=== PATIENT | male | born 1935 | race Two or more races ===

== ENCOUNTER 2024-04-07 14:07 | Emergency (ER) | payer MEDICARE, BC ==
[~2024-04-07] VITALS: Ht 185.4 cm; Wt 77.6 kg
[2024-04-07 14:51] LABS: BASOPHILS # (AUTO) 0.1 K/uL (0.0-0.2); BASOPHILS % (AUTO) 0.7 % (0.0-2.0); EOSINOPHILS # (AUTO) 0.1 K/uL (0.0-0.7); EOSINOPHILS % (AUTO) 1.8 % (0.0-6.0); HEMATOCRIT 38 % (39-51); LYMPHOCYTES # (AUTO) 1.4 K/uL (0.8-4.8); LYMPHOCYTES % (AUTO) 19.5 % (20.0-44.0); MEAN CORPUSCULAR HEMOGLOBIN 31 PG (26.0-33.0); MEAN CORPUSCULAR HGB CONC 35 g/dl (31.0-36.0); MEAN CORPUSCULAR VOLUME 89 fL (80-96); MONOCYTES # (AUTO) 0.7 K/uL (0.1-1.30); MONOCYTES % (AUTO) 10.2 % (2.0-12.0); NEUTROPHILS # (AUTO) 4.8 K/uL (1.8-8.9); NEUTROPHILS % (AUTO) 67.8 % (43.0-81.0); PLATELET COUNT (AUTO) 164 K/uL (150-450); RED BLOOD CELL COUNT(AUTO) 4.21 MIL/uL (4.5-6.0); RED CELL DISTRIBUTION WIDTH 14.7 % (11.5-15.0); WHITE BLOOD COUNT (AUTO) 7.1 K/uL (4.3-11.0)
[2024-04-07 15:03] LABS: CALCIUM, SERUM 8.9 mg/dL (8.5-10.1); CARBON DIOXIDE 25 mmol/L (21-32); CHLORIDE 102 mmol/L (98-107); CREATININE 0.9 mg/dL (0.6-1.3); GLUCOSE 175 mg/dL (74-106); POTASSIUM 4.3 mmol/L (3.5-5.1); SODIUM SERUM 136 mmol/L (136-145); UREA NITROGEN, BLOOD 21 mg/dL (7-18)
[2024-04-07 15:05] LABS: INR 1.19 (0.91-1.10); PARTIAL THROMBOPLASTIN TIME 28.9 SEC (24.3-34.3); PROTHROMBIN TIME 12.5 SECS (9.2-11.1)
[2024-04-07 15:09] LABS: ALANINE AMINOTRANSFERASE 11 U/L (12-78); ALBUMIN 2.9 g/dL (3.4-5.0); ALKALINE PHOSPHATASE 49 U/L (46-116); ASPARTATE AMINOTRANSFERASE 9 U/L (15-37); BILIRUBIN,DIRECT 0.2 mg/dL (0.0-0.2); BILIRUBIN,TOTAL 0.7 mg/dL (0.2-1.0); TOTAL PROTEIN, SERUM 6.3 g/dL (6.4-8.2)
[2024-04-07] MEDS: IV NS 0.9% 250 ML BAG IV ONE (16:02)
[2024-04-07] MEDS ORDERED: ATOR80TA PO (22:59)
[2024-04-07] MEDS ORDERED: TIOT4MIS3 IH (22:59)
[2024-04-07] MEDS ORDERED: DONE5TAB34 PO (22:59)
[2024-04-07] MEDS ORDERED: AMIT25TA9 PO (22:59)
[2024-04-07] MEDS ORDERED: CLOP75TA15 PO (22:59)
[2024-04-07] MEDS ORDERED: LORA-259 PO (22:59)
[2024-04-07] MEDS ORDERED: ESTR1TAB28 PO (22:59)
[2024-04-07] MEDS ORDERED: CLOT15CR27 TP (22:59)
[2024-04-07] MEDS ORDERED: CITA10SO3 PO (22:59)
[2024-04-07] MEDS ORDERED: ASCO500T21 PO (22:59)
[2024-04-07] MEDS ORDERED: VITA1TAB56 PO (22:59)
[2024-04-07] MEDS ORDERED: AZEL23SP2 BNOSTRILS (22:59)
[2024-04-07 23:01] VITALS: BP 119/94; TEMP 98.6; O2SAT 95
== END 2024-04-07 23:01 ==
LOC: ER 14:40
DX: S32.19XA Other fracture of sacrum, initial encounter for closed fracture (principal); I10 Essential (primary) hypertension; M54.2 Cervicalgia; E11.9 Type 2 diabetes mellitus without complications; W18.39XA Other fall on same level, initial encounter; Y93.89 Activity, other specified; Y92.89 Other specified places as the place of occurrence of the external cause; Y99.8 Other external cause status
CPT/HCPCS: 99285; 72125; 71045; 93005; 73502; 70450; 72192; 85025; 80048; 80076; 36415; 84484; 85730; J7050

== ENCOUNTER 2024-04-10 14:11 | Inpatient (IN) | payer MEDICARE, BC ==
[~2024-04-10] VITALS: Ht 167.6 cm; Wt 5.4 kg
[~2024-04-10 14:11] MED LIST: AMIT25TA9 PO; ASCO500T21 PO; ATOR80TA PO; AZEL23SP2 BNOSTRILS; CITA10SO3 PO; CLOP75TA15 PO; CLOT15CR27 TP; DONE5TAB34 PO; ESTR1TAB28 PO; LORA-259 PO; TIOT4MIS3 IH; VITA1TAB56 PO
[2024-04-10] MEDS ORDERED: oxyCODONE/APAP (5/325 MG) 1 UDTAB TABLET ONE (14:58)
[2024-04-10] MEDS: oxyCODONE/APAP (5/325 MG) 1 UDTAB TABLET PO ONE (15:03)
[2024-04-10] MEDS ORDERED: BISA10SU11 RC (15:24)
[2024-04-10] MEDS ORDERED: NA P133E RC (15:24)
[2024-04-10] MEDS ORDERED: ATOR40TA PO (15:24)
[2024-04-10] MEDS ORDERED: SOTA120T22 PO (15:24)
[2024-04-10] MEDS ORDERED: APIX5TAB PO (15:24)
[2024-04-10] MEDS ORDERED: ACET325T53 PO (15:24)
[2024-04-10] MEDS ORDERED: CHOL100062 PO (15:24)
[2024-04-10] MEDS ORDERED: DOCU100C36 PO (15:24)
[2024-04-10] MEDS ORDERED: MULT-225 PO (15:24)
[2024-04-10] MEDS ORDERED: MAGN400O6 PO (15:24)
[2024-04-10 15:38] LABS: BASOPHILS # (AUTO) 0.1 K/uL (0.0-0.2); BASOPHILS % (AUTO) 0.7 % (0.0-2.0); EOSINOPHILS # (AUTO) 0.2 K/uL (0.0-0.7); EOSINOPHILS % (AUTO) 3.1 % (0.0-6.0); HEMATOCRIT 36 % (39-51); HEMOGLOBIN 12.5 g/dL (13.5-17.5); LYMPHOCYTES # (AUTO) 1.3 K/uL (0.8-4.8); MEAN CORPUSCULAR HEMOGLOBIN 32 PG (26.0-33.0); MEAN CORPUSCULAR HGB CONC 35 g/dl (31.0-36.0); MEAN CORPUSCULAR VOLUME 90 fL (80-96); MONOCYTES # (AUTO) 0.9 K/uL (0.1-1.30); MONOCYTES % (AUTO) 11.7 % (2.0-12.0); NEUTROPHILS # (AUTO) 4.9 K/uL (1.8-8.9); NEUTROPHILS % (AUTO) 66.5 % (43.0-81.0); PLATELET COUNT (AUTO) 183 K/uL (150-450); RED BLOOD CELL COUNT(AUTO) 3.95 MIL/uL (4.5-6.0); WHITE BLOOD COUNT (AUTO) 7.4 K/uL (4.3-11.0)
[2024-04-10 15:50] LABS: CALCIUM, SERUM 9.2 mg/dL (8.5-10.1); CREATININE 0.8 mg/dL (0.6-1.3); POTASSIUM 4.2 mmol/L (3.5-5.1)
[2024-04-10 15:52] LABS: INR 1.2 (0.91-1.10); PARTIAL THROMBOPLASTIN TIME 29.2 SEC (24.3-34.3); PROTHROMBIN TIME 12.6 SECS (9.2-11.1)
[2024-04-10 15:58] LABS: ALBUMIN 2.7 g/dL (3.4-5.0); BILIRUBIN,DIRECT 0.2 mg/dL (0.0-0.2); BILIRUBIN,TOTAL 0.9 mg/dL (0.2-1.0); TOTAL PROTEIN, SERUM 6.1 g/dL (6.4-8.2)
[2024-04-10] MEDS ORDERED: ONDANSETRON HCL/PF 4 MG/2 ML VIAL IVP PRN (18:00)
[2024-04-10] MEDS ORDERED: MAG HYDROX/AL HYDROX/SIMETH 30 ML UDC PO PRN (18:00)
[2024-04-10] MEDS ORDERED: Z GUARD REMEDY 4 OZ OINT TP PRN (18:00)
[2024-04-10] MEDS ORDERED: MAGNESIUM HYDROXIDE 30 ML UDC PO PRN (18:00)
[2024-04-10] MEDS ORDERED: TEMAZEPAM 15 MG CAPSULE PO PRN (18:00)
[2024-04-10 20:45] VITALS: BP 114/74; TEMP 97.7; O2SAT 93
[2024-04-10 23:02] VITALS: BP 114/74; TEMP 97.7; O2SAT 93
[2024-04-11 06:46] LABS: BASOPHILS % (AUTO) 0.6 % (0.0-2.0); EOSINOPHILS # (AUTO) 0.2 K/uL (0.0-0.7); EOSINOPHILS % (AUTO) 2.7 % (0.0-6.0); HEMATOCRIT 35 % (39-51); HEMOGLOBIN 12.5 g/dL (13.5-17.5); LYMPHOCYTES # (AUTO) 1.4 K/uL (0.8-4.8); LYMPHOCYTES % (AUTO) 18.6 % (20.0-44.0); MEAN CORPUSCULAR HEMOGLOBIN 32 PG (26.0-33.0); MEAN CORPUSCULAR HGB CONC 35 g/dl (31.0-36.0); MEAN CORPUSCULAR VOLUME 90 fL (80-96); MONOCYTES # (AUTO) 0.8 K/uL (0.1-1.30); MONOCYTES % (AUTO) 10.7 % (2.0-12.0); NEUTROPHILS # (AUTO) 4.9 K/uL (1.8-8.9); NEUTROPHILS % (AUTO) 67.4 % (43.0-81.0); PLATELET COUNT (AUTO) 169 K/uL (150-450); RED BLOOD CELL COUNT(AUTO) 3.92 MIL/uL (4.5-6.0); RED CELL DISTRIBUTION WIDTH 14.7 % (11.5-15.0); WHITE BLOOD COUNT (AUTO) 7.3 K/uL (4.3-11.0)
[2024-04-11] MEDS: PANTOPRAZOLE 40 MG TABLET.DR PO SCH (07:28)
[2024-04-11 07:30] VITALS: BP_SYST 131; BP_DIAS 73; BP_DIAS 81; TEMP 97.7; TEMP 98.1; O2SAT 97; O2SAT 99
[2024-04-11 07:36] LABS: CALCIUM, SERUM 8.9 mg/dL (8.5-10.1); CREATININE 0.6 mg/dL (0.6-1.3); MAGNESIUM 2.2 mg/dL (1.8-2.4); PHOSPHORUS 3.4 mg/dL (2.5-4.9); POTASSIUM 3.6 mmol/L (3.5-5.1)
[2024-04-11 16:00] VITALS: BP 101/67; TEMP 97.5; O2SAT 95
[2024-04-11] MEDS: ACETAMINOPHEN 325 MG TABLET PO PRN (18:11)
[2024-04-11 20:00] VITALS: BP 91/62; TEMP 97.6; O2SAT 96
[2024-04-11] MEDS: HYDROCODONE/APAP 5/325MG TABLET PO PRN (23:43)
[2024-04-12 08:00] VITALS: BP 128/73; TEMP 98.2; O2SAT 93
[2024-04-12] MEDS: HYDROCODONE/APAP 10/325MG TABLET PO PRN (14:13)
[2024-04-12 16:00] VITALS: BP 130/84; TEMP 97.8; O2SAT 95
[2024-04-12] MEDS: PROSOURCE / PROSTAT (PYXIS) 30 ML UDC PO SCH (17:12)
[2024-04-12 20:00] VITALS: BP 130/84; TEMP 98.4; O2SAT 93
[2024-04-12 22:30] VITALS: BP 125/74; TEMP 98; O2SAT 98
[2024-04-13 07:30] VITALS: BP 146/92; TEMP 98.2; O2SAT 95
== END 2024-04-13 13:00 | DRG 552 ==
LOC: ER 15:05 → MED 20:09
PROVIDERS: ADMIT Nurse Practitioner Acute Care; ATTEND Nurse Practitioner Acute Care
DX: S32.10XA Unspecified fracture of sacrum, initial encounter for closed fracture (principal); M19.90 Unspecified osteoarthritis, unspecified site; E11.9 Type 2 diabetes mellitus without complications; I10 Essential (primary) hypertension; W18.30XA Fall on same level, unspecified, initial encounter; Y92.9 Unspecified place or not applicable; E78.5 Hyperlipidemia, unspecified; Z79.01 Long term (current) use of anticoagulants; Z79.899 Other long term (current) drug therapy; Z66 Do not resuscitate; Z51.5 Encounter for palliative care; M43.17 Spondylolisthesis, lumbosacral region; I70.0 Atherosclerosis of aorta; Z98.890 Other specified postprocedural states; R26.9 Unspecified abnormalities of gait and mobility; M48.07 Spinal stenosis, lumbosacral region
CPT/HCPCS: 36415; 70450-TC; 71045-TC; 72125-TC; 72192-TC; 73502; 80048-TC; 80076-TC; 83735-TC; 84100-TC; 84484-TC; 85025-TC; 85730-TC; 86850-TC; 87081-TC; 97110-TC; 97116-TC; 97530-TC; 97535-TC; G0378

== ENCOUNTER 2024-07-26 12:06 | Inpatient (IN) | payer MEDICARE, BC ==
[~2024-07-26] VITALS: Ht 185.4 cm; Wt 64.9 kg
[~2024-07-26 12:06] MED LIST changes: +ACET325T53 PO; -AMIT25TA9 PO; -ASCO500T21 PO; +ATOR40TA PO; -ATOR80TA PO; -AZEL23SP2 BNOSTRILS; +BISA10SU11 RC; +CHOL100062 PO; -CITA10SO3 PO; -CLOP75TA15 PO; -CLOT15CR27 TP; +DOCU100C36 PO; -DONE5TAB34 PO; -ESTR1TAB28 PO; -LORA-259 PO; +MAGN400O6 PO; +MULT-225 PO; +NA P133E RC; +SOTA120T22 PO; -TIOT4MIS3 IH; -VITA1TAB56 PO
[2024-07-26] MEDS: IV NS 0.9% 1,000 ML BAG IV ONE (12:30)
[2024-07-26 12:43] LABS: CALCIUM, SERUM 8.5 mg/dL (8.5-10.1); CARBON DIOXIDE 33 mmol/L (21-32); CHLORIDE 96 mmol/L (98-107); CREATININE 0.7 mg/dL (0.6-1.3); GLUCOSE 174 mg/dL (74-106); POTASSIUM 4.7 mmol/L (3.5-5.1); SODIUM SERUM 129 mmol/L (136-145); UREA NITROGEN, BLOOD 28 mg/dL (7-18)
[2024-07-26 12:57] LABS: INR 1.15 (0.91-1.10); PARTIAL THROMBOPLASTIN TIME 28.3 SEC (24.3-34.3); PROTHROMBIN TIME 12.1 SECS (9.2-11.1)
[2024-07-26 13:09] LABS: BASOPHILS % (AUTO) 0.4 % (0.0-2.0); EOSINOPHILS # (AUTO) 0.1 K/uL (0.0-0.7); EOSINOPHILS % (AUTO) 1.2 % (0.0-6.0); HEMATOCRIT 31 % (39-51); HEMOGLOBIN 10.6 g/dL (13.5-17.5); LYMPHOCYTES # (AUTO) 0.8 K/uL (0.8-4.8); LYMPHOCYTES % (AUTO) 9.1 % (20.0-44.0); MEAN CORPUSCULAR HEMOGLOBIN 30 PG (26.0-33.0); MEAN CORPUSCULAR HGB CONC 35 g/dl (31.0-36.0); MEAN CORPUSCULAR VOLUME 88 fL (80-96); MONOCYTES # (AUTO) 0.8 K/uL (0.1-1.30); NEUTROPHILS # (AUTO) 7.3 K/uL (1.8-8.9); NEUTROPHILS % (AUTO) 80.3 % (43.0-81.0); PLATELET COUNT (AUTO) 247 K/uL (150-450); RED BLOOD CELL COUNT(AUTO) 3.48 MIL/uL (4.5-6.0); RED CELL DISTRIBUTION WIDTH 15.3 % (11.5-15.0)
[2024-07-26] MEDS ORDERED: ASPI-1169 PO (14:28)
[2024-07-26] MEDS ORDERED: HYDR-4303 PO (14:28)
[2024-07-26] MEDS ORDERED: PANT40TA2 PO (14:28)
[2024-07-26] MEDS ORDERED: AMIN30LI2 PO (14:28)
[2024-07-26] MEDS ORDERED: ASCO500T21 PO (14:28)
[2024-07-26] MEDS ORDERED: MAG-5 PO (14:28)
[2024-07-26] MEDS ORDERED: MAG HYDROX/AL HYDROX/SIMETH 30 ML UDC PO PRN ×2 (16:00→16:30)
[2024-07-26] MEDS ORDERED: MAGNESIUM HYDROXIDE 30 ML UDC PO PRN ×2 (16:00→16:30)
[2024-07-26] MEDS ORDERED: NA PHOS,M-B/NA PHOS,DI-BA 1 EA ENEMA RC PRN (16:00)
[2024-07-26] MEDS ORDERED: ACETAMINOPHEN 325 MG TABLET PO PRN (16:00)
[2024-07-26] MEDS ORDERED: BISACODYL SUPP (10 MG) 10 MG/SUPP.RECT SUPP.RECT RC PRN (16:00)
[2024-07-26] MEDS ORDERED: ONDANSETRON HCL/PF 4 MG/2 ML VIAL IVP PRN (16:30)
[2024-07-26] MEDS ORDERED: DEXTROSE 50%-WATER 50 ML DISP.SYRIN IV PRN (16:30)
[2024-07-26] MEDS ORDERED: Z GUARD REMEDY 4 OZ OINT TP PRN (16:30)
[2024-07-26 17:21] VITALS: BP 123/78; TEMP 98.1; O2SAT 96
[2024-07-26] MEDS: SOTALOL HCL 80 MG TABLET PO SCH (18:03)
[2024-07-26] MEDS: BLOOD SUGAR DIAGNOSTIC 1 EACH STRIP VI SCH (18:14)
[2024-07-26 20:00] VITALS: BP 137/95; TEMP 98.2; O2SAT 95
[2024-07-26] MEDS: *INSULIN REGULAR(HUMULIN R)HUM 100 UNIT/ML VIAL SQ PRN (21:28)
[2024-07-26] MEDS: IV NS 0.9% 1,000 ML IV PRN (21:31)
[2024-07-27] MEDS: INSULIN REGULAR, HUMAN 100 UNIT/ML 3 ML VIAL SQ PRN (05:56)
[2024-07-27 06:40] LABS: BASOPHILS % (AUTO) 0.5 % (0.0-2.0); EOSINOPHILS # (AUTO) 0.2 K/uL (0.0-0.7); EOSINOPHILS % (AUTO) 2.2 % (0.0-6.0); HEMATOCRIT 30 % (39-51); HEMOGLOBIN 10.3 g/dL (13.5-17.5); LYMPHOCYTES # (AUTO) 1.1 K/uL (0.8-4.8); LYMPHOCYTES % (AUTO) 13.7 % (20.0-44.0); MEAN CORPUSCULAR HEMOGLOBIN 30 PG (26.0-33.0); MEAN CORPUSCULAR HGB CONC 35 g/dl (31.0-36.0); MEAN CORPUSCULAR VOLUME 87 fL (80-96); MONOCYTES # (AUTO) 0.9 K/uL (0.1-1.30); MONOCYTES % (AUTO) 10.6 % (2.0-12.0); PLATELET COUNT (AUTO) 258 K/uL (150-450); RED BLOOD CELL COUNT(AUTO) 3.39 MIL/uL (4.5-6.0); RED CELL DISTRIBUTION WIDTH 15.5 % (11.5-15.0); WHITE BLOOD COUNT (AUTO) 8.2 K/uL (4.3-11.0)
[2024-07-27 07:20] LABS: CALCIUM, SERUM 8.7 mg/dL (8.5-10.1); CARBON DIOXIDE 28 mmol/L (21-32); CHLORIDE 101 mmol/L (98-107); CREATININE 0.6 mg/dL (0.6-1.3); GLUCOSE 97 mg/dL (74-106); MAGNESIUM 2.2 mg/dL (1.8-2.4); PHOSPHORUS 3.5 mg/dL (2.5-4.9); POTASSIUM 4.1 mmol/L (3.5-5.1); SODIUM SERUM 133 mmol/L (136-145); UREA NITROGEN, BLOOD 21 mg/dL (7-18)
[2024-07-27] MEDS: DOCUSATE SODIUM 100 MG CAPSULE PO SCH (09:06)
[2024-07-27] MEDS: PANTOPRAZOLE 40 MG TABLET.DR PO SCH (09:07)
[2024-07-27] MEDS: ASCORBIC ACID 500 MG TABLET PO SCH (09:07)
[2024-07-27 09:10] VITALS: BP 137/70; TEMP 97.9; O2SAT 96
[2024-07-27 16:09] VITALS: BP 105/86; TEMP 97.5; O2SAT 96
[2024-07-27 20:00] VITALS: BP 106/62; TEMP 97.7; O2SAT 97
[2024-07-28 07:00] LABS: BASOPHILS % (AUTO) 0.5 % (0.0-2.0); EOSINOPHILS # (AUTO) 0.2 K/uL (0.0-0.7); EOSINOPHILS % (AUTO) 2.3 % (0.0-6.0); HEMATOCRIT 31 % (39-51); HEMOGLOBIN 10.5 g/dL (13.5-17.5); LYMPHOCYTES # (AUTO) 1.1 K/uL (0.8-4.8); LYMPHOCYTES % (AUTO) 13.7 % (20.0-44.0); MEAN CORPUSCULAR HEMOGLOBIN 30 PG (26.0-33.0); MEAN CORPUSCULAR HGB CONC 34 g/dl (31.0-36.0); MEAN CORPUSCULAR VOLUME 88 fL (80-96); NEUTROPHILS % (AUTO) 71.5 % (43.0-81.0); PLATELET COUNT (AUTO) 254 K/uL (150-450); RED BLOOD CELL COUNT(AUTO) 3.54 MIL/uL (4.5-6.0); RED CELL DISTRIBUTION WIDTH 15.7 % (11.5-15.0); WHITE BLOOD COUNT (AUTO) 8.4 K/uL (4.3-11.0)
[2024-07-28 07:53] LABS: CALCIUM, SERUM 8.4 mg/dL (8.5-10.1); CARBON DIOXIDE 24 mmol/L (21-32); CHLORIDE 100 mmol/L (98-107); CREATININE 0.7 mg/dL (0.6-1.3); GLUCOSE 103 mg/dL (74-106); PHOSPHORUS 3.1 mg/dL (2.5-4.9); POTASSIUM 3.6 mmol/L (3.5-5.1); SODIUM SERUM 132 mmol/L (136-145); UREA NITROGEN, BLOOD 20 mg/dL (7-18)
[2024-07-28 07:58] LABS: URIC ACID 3.9 mg/dL (2.6-7.2)
[2024-07-28 08:00] VITALS: BP 101/66; TEMP 97.9; O2SAT 97
[2024-07-28 08:41] VITALS: BP 101/66
[2024-07-28 11:00] LABS: URINE SODIUM, RANDOM 31 mmol/l (40-220)
[2024-07-28] MEDS: ACETAMINOPHEN 325 MG TABLET PO PRN (13:41)
[2024-07-28] MEDS ORDERED: GLUCERNA SHAKE 237 ML CAN PO SCH (17:00)
[2024-07-29 16:47] LABS: OSMOLALITY,URINE 883 mOS/kg (340-1090)
== END 2024-07-28 16:02 | DRG 543 ==
LOC: ER 12:16 → MED 16:07
PROVIDERS: ADMIT Internal Medicine; ATTEND Internal Medicine
DX: M84.452A Pathological fracture, left femur, initial encounter for fracture (principal); E87.1 Hypo-osmolality and hyponatremia; F03.90 Unspecified dementia, unspecified severity, without behavioral disturbance, psychotic disturbance, mood disturbance, and anxiety; E86.1 Hypovolemia; E78.5 Hyperlipidemia, unspecified; E11.9 Type 2 diabetes mellitus without complications; I10 Essential (primary) hypertension; Z66 Do not resuscitate; Z51.5 Encounter for palliative care; Z79.899 Other long term (current) drug therapy; Z74.01 Bed confinement status; M89.8X9 Other specified disorders of bone, unspecified site; D64.9 Anemia, unspecified; R79.89 Other specified abnormal findings of blood chemistry; E86.9 Volume depletion, unspecified; M19.90 Unspecified osteoarthritis, unspecified site
CPT/HCPCS: 36415; 71045-TC; 72170-TC; 72192-TC; 73552; 80048-TC; 82962-TC; 83735-TC; 83935-TC; 84100-TC; 84300-TC; 84443-TC; 84550-TC; 85025-TC; 85730-TC; A4223; G0378; J1815; J7030